=== PATIENT | male | born 1985 | race Caucasian/White ===

== ENCOUNTER → 2019-08-03 | Outpatient (CLI) | payer OTHER ==
[~2019-08-03] MED LIST: GADOTERATE 7.5 MMOL/15ML VIAL. IVP ONE
--- NOTE | 2019-08-03 09:56 | RAD ---
MRI Brain with and without contrast History:Frontal lesion Technique: Multiplanar, multi sequential pre and postcontrast MR imaging was performed of the brain. Comparison: August 25, 2018 Findings: There is no evidence of recent infarct or cytotoxic edema. The ventricles, sulci, and cisterns are within normal limits in size and configuration. There is no significant midline shift, intraaxial mass effect, or focal abnormal extra-axial fluid collection. Not associated with significant edema or mass effect, there is similar focus of increased T2 signal and faint FLAIR hypertense signal signal about 6-7 mm transverse of the left parasagittal frontal lobe along the cortical surface. There is associated decreased signal on gradient-echo sequence with associated mild blooming. There is again some subtle associated T1 shortening This is not associated with significant enhancement. Otherwise there is no other significant signal abnormality of the brain parenchyma. There is no nodular parenchymal or leptomeningeal enhancement. There is preservation of the major intracranial flow-voids at the skull base. The cerebellar tonsils are normal in location. There is no significant abnormality of the pineal gland or pituitary gland. There is minimal bilateral ethmoid air cell mucosal thickening. There is minimal thickening of the mastoid air cells bilaterally.There is preserved marrow signal of the clivus. Impression: 1. There is stable small focus of nonenhancing signal abnormality of the left parasagittal frontal lobe with evidence of hemosiderin deposition/old hemorrhage, primary consideration a cavernous malformation. Electronically signed by: Scott Dennis MD (08/03/2019 9:53 AM) [id number]
== END | disposition home or self-care (01) ==
LOC: MRI 08:25
PROVIDERS: ATTEND Family Medicine
DX: G93.89 Other specified disorders of brain (principal)
CPT/HCPCS: 70553; A9575